=== PATIENT | female | born 1960 | race Caucasian/White ===

== ENCOUNTER 2017-07-24 14:01 | Emergency (ER) | payer BC, MEDICAID ==
[~2017-07-24] VITALS: Ht 165.1 cm; Wt 95.6 kg
[2017-07-24] MEDS ORDERED: SODIUM CHLORIDE FLUSH 10ML SYR IVF ONE (15:00)
[2017-07-24] MEDS ORDERED: ONDANSETRON 2MG/ML, 2ML IVPush ONE (15:00)
[2017-07-24] MEDS ORDERED: SODIUM CHLORIDE 0.9% 1,000ML IVBOLUS ONE (15:00)
[2017-07-24 15:05] LABS: RAPID INFLUENZA A Negative (Negative); RAPID INFLUENZA B Negative (Negative)
[2017-07-24 15:23] LABS: BASOPHILS # (AUTO) 0.01 x10^3/uL (0-0.1); BASOPHILS % (AUTO) 0 % (0-1); EOSINOPHILS % (AUTO) 0 % (1-7); LYMPHOCYTES # (AUTO) 0.43 x10^3/uL (1-3.4); LYMPHOCYTES % (AUTO) 8 % (22-44); MD NO; MEAN CORPUSCULAR HEMOGLOBIN 29.1 pg (27.0-34.8); MEAN CORPUSCULAR HGB CONC 33.3 g/dL (32.4-35.8); MEAN CORPUSCULAR VOLUME 87.3 fL (80-100); MEAN PLATELET VOLUME 9.9 fL (7.4-10.4); MONOCYTES # (AUTO) 0.63 x10^3/uL (0.2-0.8); MONOCYTES % (AUTO) 11 % (2-9); NEUTROPHILS # (AUTO) 4.49 x10^3/uL (1.8-6.8); NEUTROPHILS % (AUTO) 81 % (42-75); PLATELET COUNT 180 x10^3/uL (130-400); RED BLOOD COUNT 4.58 x10^6/uL (3.82-5.3); RED CELL DISTRIBUTION WIDTH 13.5 % (9.6-15.2)
[2017-07-24 15:30] LABS: ANION GAP 9 mmol/L (5-15); CALCIUM 8.8 mg/dL (8.5-10.1); CHLORIDE 103 mmol/L (98-107); CREATININE 1.75 mg/dL (0.55-1.02)
[2017-07-24] MEDS ORDERED: ONDANSETRON 2MG/ML, 2ML ONE (16:37)
[2017-07-24] MEDS ORDERED: MYCO180T10 PO (16:55)
[2017-07-24] MEDS ORDERED: TACR5CAP4 PO (16:55)
[2017-07-24] MEDS ORDERED: PRED5TAB PO (16:55)
[2017-07-24] MEDS ORDERED: MYCO500T PO (16:55)
[2017-07-24 18:36] LABS: CULTURE INDICATED? YES; MICROSCOPIC INDICATED
[2017-07-24 19:39] VITALS: BP 134/74
== END 2017-07-24 19:52 | disposition home or self-care (01) ==
LOC: ED 18:27
DX: K52.9 Noninfective gastroenteritis and colitis, unspecified (principal); N30.00 Acute cystitis without hematuria; Z94.0 Kidney transplant status
CPT/HCPCS: 36415; 71045; 80048; 81001; 82040; 83605; 85025; 87040; 87086; 87400; 96361; 96374; 99285; J2405; J7030